=== PATIENT | male | born 1975 | race Two or more races ===

== ENCOUNTER 2016-12-17 01:29 | Emergency (ER) | payer OTHER ==
[~2016-12-17] VITALS: Ht 167.6 cm; Wt 77.0 kg
[2016-12-17 01:32] VITALS: Ht 167.6 cm; Wt 77.0 kg
[2016-12-17] MEDS ORDERED: ASPIRIN 325 MG TAB PO STA (02:25)
--- NOTE | 2016-12-17 02:59 | RADRPT ---
PROCEDURE: CHEST - 1 VIEW CLINICAL INDICATION: 41-year-old male with chest pain. TECHNIQUE: A single frontal AP upright portable view of the chest was performed. The images were reviewed on a PACS workstation. COMPARISON: None. FINDINGS: There is a shallow inspiration accentuating the heart size. Accounting for this, the cardiomediasti nal silhouette is within normal limits. There is minimal bibasilar subsegmental atelectasis. There is no evidence for an infiltrate. There is no evidence for congestive heart failure. There is no e vidence for pneumothorax. The osseous structures are intact. IMPRESSION: Shallow inspiration with minimal bibasilar subsegmental atelectasis. .Ayaan Araujo MD, MD Date Time Electronically viewed and signed by .Ayaan Araujo MD, on 12/17/2016 02:59 .M/
[2016-12-17 03:32] LABS: BASOPHILS % 0.3 % (0.0-2.0); EOSINOPHILS # 0.1 10^3/ul (0.0-0.5); EOSINOPHILS % 1.6 % (0.0-7.0); HEMATOCRIT 43.2 % (42.0-52.0); MEAN CORPUSCULAR HEMOGLOBIN 28.1 pg (29.0-33.0); MEAN CORPUSCULAR HGB CONC 34.7 g/dl (32.0-37.0); MEAN CORPUSCULAR VOLUME 81.1 fl (82.0-101.0); MEAN PLATELET VOLUME 11.2 fl (7.4-10.4); MONOCYTE # 0.9 10^3/ul (0.3-0.9); MONOCYTES % 11.8 % (0.0-11.0); NEUTROPHIL # 5.6 10^3/ul (1.6-7.5); NEUTROPHILS % 72.8 % (39.0-77.0); PLATELET COUNT 237 10^3/UL (140-415); RED BLOOD COUNT 5.33 10^6/ul (4.70-6.10); RED CELL DISTRIBUTION WIDTH 13.2 % (11.5-14.5); WHITE BLOOD COUNT 7.6 10^3/ul (4.8-10.8)
[2016-12-17] MEDS ORDERED: RANI150T9 PO (03:39)
[2016-12-17 03:46] VITALS: BP 139/92; PULSE 65; RESP 16; TEMP 98.1
[2016-12-17 03:47] LABS: INR 1.01; PROTIME 13.3 Sec (12.2-14.2)
--- NOTE | 2016-12-17 03:47 | ERD ---
ER Documentation Chief Complaint Date/Time DATE: 12/17/16 TIME: 03:41 Chief Complaint sharp chest pain since 1 hour ago HPI This 41-year-old male presents to the ER with sharp chest pain that began an hour ago. States that he had a recent in the family. Denies any shortness of breath. He has no medical problems. No hypertension, no hypercholesterolemia, does not smoke. Pain does not radiate. No associated symptoms. ROS All systems reviewed and are negative except as per history of present illness. Medications Home Meds Active Scripts Ranitidine Hcl* (Zantac*) 150 Mg Tablet, 150 MG PO BID Y for EPIGASTRIC PAIN, # 30 TAB Prov:PAUL BENAVIDES DO 12/17/16 Allergies Allergies: Coded Allergies: No Known Allergy (Unverified , 12/17/16) PMhx/Soc Medical and Surgical Hx: pt denies Medical Hx, pt denies Surgical Hx Hx Alcohol Use: No Hx Substance Use: No Hx Tobacco Use: No Smoking Status: Never smoker Physical Exam Vitals Vital Signs Date Time Temp Pulse Resp B/P Pulse Ox O2 Delivery O2 Flow Rate FiO2 12/17/16 01:32 98.8 77 20 170/106 100 Physical Exam Const: [] No distress Eyes: Normal Conjunctiva ENT: Normal External Ears, Nose and Mouth. Neck: Full range of motion..~ No meningismus. Resp: Clear to auscultation bilaterally Cardio: Regular rate and rhythm, no murmurs Abd: Soft, non tender, non distended. Normal bowel sounds Skin: No petechiae or rashes Ext: No cyanosis, or edema Neur: Awake and alert and oriented 3, no focal deficits Psych: Normal Mood and Affect Result Diagram: 12/17/16 0220 Results 24 hrs Laboratory Tests Test 12/17/16 02:20 White Blood Count 7.610^3/ul Red Blood Count 5.3310^6/ul Hemoglobin 15.0g/dl Hematocrit 43.2% Mean Corpuscular Volume 81.1fl Mean Corpuscular Hemoglobin 28.1pg Mean Corpuscular Hemoglobin Concent 34.7g/dl Red Cell Distribution Width 13.2% Platelet Count 47686^3/UL Mean Platelet Volume 11.2fl Neutrophils % 72.8% Lymphocytes % 13.0% Monocytes % 11.8% Eosinophils % 1.6% Basophils % 0.3% Nucleated Red Blood Cells % 0.0/100WBC Neutrophils # 5.610^3/ul Lymphocytes # 1.010^3/ul Monocytes # 0.910^3/ul Eosinophils # 0.110^3/ul Basophils # 0.010^3/ul Nucleated Red Blood Cells # 0.010^3/ul Current Medications Medications (Trade) Dose Ordered Sig/Liv Route PRN Reason Start Time Stop Time Status Last Admin Dose Admin Aspirin (Aspirin) 325 mg ONCE STAT PO 12/17/16 02:25 12/17/16 02:26 DC 12/17/16 02:47 Procedures/MDM Atypical chest pain. Patient has normal EKG. Pain was completely resolved in the emergency room after the patient received aspirin. This is very typical for an acute coronary syndrome which I doubt as the patient has no risk factors. Also doubt pulmonary embolism, aortic dissection and other terrible disorders of the chest. Patient is asymptomatic. We will discharge him with instructions to obtain an echocardiogram as an outpatient. Return precautions are also given. EKG interpretation: Normal sinus rhythm rate 75, normal axis, no ST or T-wave changes concerning for acute ischemia. Normal EKG hospital monitor interpretation: Normal sinus rhythm without arrhythmia Chest x-ray interpretation: I see no acute process. I see no pulmonary edema, no wide mediastinum, pneumothorax, no fractures Departure Diagnosis: Primary Impression: Chest pain Condition: Stable Patient Instructions: Chest Pain, Uncertain Cause Referrals: [facility] YOU HAVE RECEIVED A MEDICAL SCREENING EXAM AND THE RESULTS INDICATE THAT YOU DO NOT HAVE A CONDITION THAT REQUIRES URGENT TREATMENT IN THE EMERGENCY DEPARTMENT. FURTHER EVALUATION AND TREATMENT OF YOUR CONDITION CAN WAIT UNTIL YOU ARE SEEN IN YOUR DOCTORS OFFICE WITHIN THE NEXT 1-2 DAYS. IT IS YOUR RESPONSIBILITY TO MAKE AN APPOINTMENT FOR FOL-UP CARE. IF YOU HAVE A PRIMARY DOCTOR --you should call your primary doctor and schedule an appointment IF YOU DO NOT HAVE A PRIMARY DOCTOR YOU CAN CALL OUR PHYSICIAN REFERRAL HOTLINE AT IF YOU CAN NOT AFFORD TO SEE A PHYSICIAN YOU CAN CHOSE FROM THE FOLLOWING [facility] [address] [facility] [address] [facility] [facility] [address] [facility] [address] [facility] [address] [facility]. [facility]. [address] Additional Instructions: Llame al doctor MAANA y venkat luke JELENA PARA DENTRO DE 2-3 BLAS.Dgale a la secretaria que nosotros le instruimos hacer esta jelena.Avise o llame si kern condicin se empeora antes de la jelena. Regresa aqui si peor o no mejor. PAUL BENAVIDES DO Dec 17, 2016 03:47
[2016-12-17 03:48] LABS: PARTIAL THROMBOPLASTIN TIME 30.6 Sec (25.0-35.0)
[2016-12-17 04:09] LABS: ANION GAP 15 (8-16); BLOOD UREA NITROGEN 11 mg/dl (7-20); CALCIUM 9.4 mg/dl (8.4-10.2); CARBON DIOXIDE 26 mmol/L (21-31); CHLORIDE 102 mmol/L (97-110); CREATININE 0.91 mg/dl (0.61-1.24); GLUCOSE 103 mg/dl (70-220); POTASSIUM 3.1 mmol/L (3.5-5.1); SODIUM 140 mmol/L (135-144)
[2016-12-17 04:23] LABS: TROPONIN-I < 0.012 ng/ml (0.00-0.12)
== END 2016-12-17 03:48 | disposition home or self-care (01) ==
LOC: E/R 01:29
DX: R07.9 Chest pain, unspecified (principal)
CPT/HCPCS: 36415; 71010; 80048; 84484; 85025; 85610; 85730; 93005; Z7502; Z7610